=== PATIENT | male | born 1955 | race African-American/Black ===

== ENCOUNTER 2020-04-26 17:59 | Inpatient (IN) | payer OTHER ==
[~2020-04-26] VITALS: Ht 175.3 cm; Wt 89.0 kg
[~2020-04-26 17:59] MED LIST: CARDURA; HYDROCHLOROT25 MG PO; NORVASC2.5 MG PO; PROTONIX40 M2 PO; ZANTAC150 M1 PO
--- NOTE | 2020-04-26 17:59 | NUR ---
PT TO ROOM VIA EMS STRETCHER. PER EMS PT WAS GIVEN 324 MG OF ASA AND 0.4 MG OF NITRO, SL.
--- NOTE | 2020-04-26 18:50 | NUR ---
GAVE REPORT TO AARTI
[2020-04-26 18:53] LABS: BASO% 0 % (0-3); EOS% 0 % (0-8); HEMATOCRIT 34.9 % (39.0-50.0); IMMATURE GRANULOCYTES 0.9 % (0.0-5.0); LYMPH% 12 % (15-41); MEAN CELL VOLUME 84.7 fL CALC (80.0-100.0); MEAN CORPUSCULAR HGB 27.7 pG CALC (26.0-32.0); MEAN CORPUSCULAR HGB CONC 32.7 g/dL CAL (32.0-36.0); MONO% 5 % (2-13); NEUT% 82 % (42-76); RED BLOOD COUNT 4.12 mill/uL (4.70-6.10)
[2020-04-26 19:10] LABS: ALKALINE PHOSPHATASE 53 u/l (38-126); BILIRUBIN, TOTAL 0.7 mg/dL (0.0-1.4); BUN 30 mg/dL (8-23); BUN/CREATININE RATIO 27 (12-20 (CALC)); CHLORIDE 105 mmol/l (95-108); CREATININE 1.1 mg/dL (0.7-1.3); GFR > 60 ML/MIN (>=60 (CALC)); GFR FOR AFR.AMER. > 60 ML/MIN (>=60 (CALC)); POTASSIUM 3.3 mmol/l (3.5-5.1); SODIUM 137 mmol/l (137-146); TOTAL PROTEIN 7.4 g/dL (6.3-8.2)
[2020-04-26 19:12] LABS: D-DIMER 0.81 mg/L (0.19-0.60)
--- NOTE | 2020-04-26 19:15 | NUR ---
RESTING COMFORTABLY AWAITING DISPO.
[2020-04-26 19:21] LABS: ALBUMIN 3.5 g/dL (3.2-5.0); ANION GAP 9 (6-22 (CALC)); C-REACTIVE PROTEIN 14.8 mg/dL (0-0.9); CARBON DIOXIDE 26 mmol/l (22-30); SGOT/AST 62 u/l (19-48)
[2020-04-26 19:23] LABS: ACT PARTIAL THROMBO TIME 29.9 SECONDS (20.0-32.5); INTERNATIONAL NORMALIZED RATIO 1.1 RATIO (0.7-1.3); PROTHROMBIN TIME 10.8 SECONDS (9.0-12.5)
[2020-04-26 19:26] LABS: HEMOGLOBIN 11.4 g/dl (14.0-18.0); PLATELET COUNT 249 thou/uL (130-400)
--- NOTE | 2020-04-26 20:15 | NUR ---
NO CHANGE IN EXAM.
--- NOTE | 2020-04-26 20:59 | NUR ---
Admission Note Report Given to: TAWANNA CHAVEZ Transported by: Wheelchair X Stretcher Transported with: X Nurse Transporter X Patent IV O2 X Play Therapist Location: ICU X [facility]
--- NOTE | 2020-04-26 21:05 | NUR ---
BY STRETCHER TO ROOM WITH PATTI X 2 ATTENDING [address]ACKLES IN PLACE.
[2020-04-26 21:10] VITALS: BP 134/77
--- NOTE | 2020-04-26 21:10 | NUR ---
PT ARRIVED TO [facility] VIA STRETCHER ACCOMPANIED BY ER NURSE AND 2 GUARDS. PT ALERT AND ORIENTED X3, AMBULATED WITH STEADY GAIT TO BED, ORIENTED PT TO ROOM AND CALL LIGHT, TEDS APPLIED, R ANKLE SHACKLED TO BEDRAIL, IS AT BEDSIDE PT DEMONSTRATED IT'S USE PT UNABLE TO MOVE THE DEVICE. DISCUSSED POC, PT MEDICATED WITH DECADRON. PT ON RA AT THIS TIME. ADMISSION ASSESSMENT COMPLETED. CALL LIGHT IN REACH,CONTINUE TO MONITOR.
--- NOTE | 2020-04-26 22:06 | NUR ---
PT RESTING IN BED, DISCUSSED MD ORDERS OF LOVENOX, PT AGREES. PT TOLERATED WELL. CALL LIGHT IN REACH,CONTINUE TO MONITOR.
[2020-04-27 00:04] VITALS: BP 129/81
--- NOTE | 2020-04-27 00:13 | NUR ---
PT RESTING IN BED WITH EYES CLOSED, NO SIGNS OF DISTRESS NOTED, RESP EVEN AND UNLABORED. OFFICERS X2 AT BEDSIDE, CALL LIGHT IN REACH,CONTINUE TO MONITOR.
[2020-04-27 03:32] VITALS: BP 140/84
--- NOTE | 2020-04-27 06:10 | NUR ---
PT RESTING IN BED WITH EYES CLOSED, NO SIGNS OF DISTRESS NOTED, RESP EVEN AND UNLABORED. CALL LIGHT IN REACH,CONTINUE TO MONITOR.
[2020-04-27] MEDS ORDERED: CARDURA2 MG PO (07:33)
--- NOTE | 2020-04-27 08:14 | NUR ---
PT note Patient is screened for PT intervention and it is felt he has no needs at this time
[2020-04-27 08:50] VITALS: BP 140/76
--- NOTE | 2020-04-27 08:50 | NUR ---
ASSESSMENT IS COMPLETED: IV SITE IS FREE FROM REDNESS OR EDEMA. HR IS REG,PULSES ARE STRONG X4, ABD IS SOFT WITH ACTIVE BS. BREATH SOUNDS ARE CLEAR,AND DIMINISHED. BILATERALLY. TELE MONITOR IN PLACE. CONTINUE TO OSBERVE AND MONITOR. 1 GUARD IN THE ROOM WITH N95 THE OTHER GUARD OUTSIDE OF THE ROOM WITH A REGULAR MASK IN PLACE.,
[2020-04-27 11:00] VITALS: BP 122/78
--- NOTE | 2020-04-27 12:15 | NUR ---
SPOKE WITH NURSE P AT THE FACILITY. INQUIRED ABOUT PT.,EXPLAINED BEING OBSERVED OVER NIGHT. NO C/O CP. HAS A UTI. VERBALIZED UNDERSTANDING. IV SITE REMAINS FREE FROM REDNESS OR EDEMA.
[2020-04-27 16:15] VITALS: BP 121/76
--- NOTE | 2020-04-27 16:30 | NUR ---
PT IS RELAXING IN BED GUARDS PRESENT. IV SITE IS FREE FROM REDNESS OR EDEMA. CONITNUE TO OBSERVE AND MONITOR.
--- NOTE | 2020-04-27 20:00 | NUR ---
ASSESSMENT COMPLETED. GUARDS X2 AT BEDSIDE; GUARDS ARE EDUCATED ON NEED FOR N95 MASKS THEY ONLY HAVE SURGICAL FACE MASKS ON AND NEEDS FOR HAND HYGEINE WHILE IN ISOLATION ROOM.PT. IS A/A/O WITH NO DISTRESS NOTED ON RA. TELEMETRY IN PLACE. PT WITH SHACKLE ON RLE AND RELEASED SO PT. COULD AMBULATE UP TO THE TOP OF THE BED FOR BETTER POSITIONING IN BED. SCHED MED GIVEN. NEW IV SITE PLACED TO RIGHT HAND AND EMS SITE REMOVED WITH CATHETER TIP INTACT. EDUCATED ON POC. CALL LIGHT IS IN REACH.
[2020-04-27 20:10] VITALS: BP 144/74
--- NOTE | 2020-04-27 21:45 | NUR ---
GUARD UP AT THE DESK AND REQUESTING TO WARM UP HER FOOD; GUARD IS EDUCATED THIS WAS IN ISOLATION ROOM WE ARE NOT TO ALLOW IT IN BREAKROOM. GUARD APPEARS UPSET EVEN WITH EDUCATION GIVEN ON ISOLATION PROCEDURES. SPOKE WITH STUDENT RECRUITER AND NOTIFIED HER OF THIS. OFFERED TO HAVE STUDENT RECRUITER TO SPEAK WITH HER AND OTHER GUARDS IN REGARDS TO POLICIES AND GUARD DECLINES WANTING TO SPEAK WITH STUDENT RECRUITER.
[2020-04-28 00:20] VITALS: BP 131/70
--- NOTE | 2020-04-28 00:20 | NUR ---
PREP ROOM SUPERVISOR IN AT BEDSIDE OBTAINING VS;VSS. CALL LIGHT IS IN REACH. GUARDS IN AT BEDSIDE.
--- NOTE | 2020-04-28 02:16 | NUR ---
PT. RESTING IN BED WITH EYES CLOSED; AWAKENED FOR ROUNDS; DENIES NEEDS/PAIN. GUARDS X2 AT BEDSIDE.
[2020-04-28 04:13] VITALS: BP 142/76
--- NOTE | 2020-04-28 04:13 | NUR ---
AM VS OBTAINED; VSS; NO DISTRESS NOTED; DENIES NEEDING TO URINATE AT THIS TIME. SNACK PROVIDED. GUARDS REMAIN AT BEDSIDE AND DENY NEEDS. CALL LIGHT IS IN REACH. WILL CONTINUE TO MONITOR.
[2020-04-28 05:56] LABS: ALBUMIN 2.9 g/dL (3.2-5.0); ALKALINE PHOSPHATASE 47 u/l (38-126); ANION GAP 8 (6-22 (CALC)); BILIRUBIN, TOTAL 0.5 mg/dL (0.0-1.4); BUN 27 mg/dL (8-23); BUN/CREATININE RATIO 27 (12-20 (CALC)); C-REACTIVE PROTEIN 5.2 mg/dL (0-0.9); CARBON DIOXIDE 26 mmol/l (22-30); CHLORIDE 107 mmol/l (95-108); GFR > 60 ML/MIN (>=60 (CALC)); GFR FOR AFR.AMER. > 60 ML/MIN (>=60 (CALC)); POTASSIUM 3.9 mmol/l (3.5-5.1); SGOT/AST 37 u/l (19-48); SODIUM 137 mmol/l (137-146); TOTAL PROTEIN 6.3 g/dL (6.3-8.2)
[2020-04-28 06:07] LABS: HEMATOCRIT 35.4 % (39.0-50.0); HEMOGLOBIN 11.6 g/dl (14.0-18.0); IMMATURE GRANULOCYTES 0.8 % (0.0-5.0); MEAN CELL VOLUME 85.1 fL CALC (80.0-100.0); MEAN CORPUSCULAR HGB 27.9 pG CALC (26.0-32.0); MEAN CORPUSCULAR HGB CONC 32.8 g/dL CAL (32.0-36.0); NEUT# 5.83 thou/uL (1.82-7.42); RED BLOOD COUNT 4.16 mill/uL (4.70-6.10); RED CELL DISTRI WIDTH 12.1 % (11.5-15.5)
[2020-04-28 07:59] VITALS: BP 145/80
--- NOTE | 2020-04-28 07:59 | NUR ---
PT RESTING IN BED, NO SIGNS OF DISTRESS NOTED, RESP EVEN AND UNLABORED. PT VOICES NO NEEDS OR COMPLAINTS AT THIS TIME, DISCUSSED POC, GUARDS X2 AT BEDSIDE, R ANKLE SHACKLED TO BEDRAIL, TEDS IN PLACE, ASSESSMENT COMPLETED, CALL LIGHT IN REACH,CONTINUE TO MONITOR.
[2020-04-28 11:30] VITALS: BP 119/69
[2020-04-28] MEDS ORDERED: ZITHROMAX250 MG PO (12:24)
--- NOTE | 2020-04-28 12:27 | NUR ---
PT AMBULATING IN ROOM, GUARDS INQUIRING WHEN PT WILL BE DISCHARGED, INFORMED POSSIBLY WITHIN THE HR, AWAITING DISCHARGE ORDERS. VERBALIZED UNDERSTANDING. CALL LIGHT IN REACH,CONTINUE TO MONITOR.
[2020-04-28] MEDS ORDERED: DEXAMETHASON2 MG PO (12:47)
--- NOTE | 2020-04-28 13:08 | NUR ---
DISCUSSED DISCHARGE INSTRUCTIONS WITH PT, IV SITE REMOVED, CATHETER INTACT. GUARDS X2 AT BEDSIDE, AWAITING TRANSPORT.
--- NOTE | 2020-04-28 13:21 | NUR ---
Discharge instructions given. Patient verbalizes understanding of same. [facility] All belongings sent with pt.
--- NOTE | 2020-05-02 09:47 | NUR ---
After multiple attempts over 2 days: Positive Covid results called to [facility] [phone]. Spoke with Alesha in "medical". She requested results to be faxed to [phone]. Alesha was unable to give any information on patients condition, she states, "I don't work in that department." Alesha states she will forward results to the staff in the patients department.
== END 2020-04-28 13:21 | DRG 177 ==
LOC: ED 17:59 → ED-I 20:05 → ED 20:18 → MS2 20:19
PROVIDERS: Nurse Practitioner; Student in an Organized Health Care Education/Training Program; ADMIT Internal Medicine; ATTEND Internal Medicine
DX: U07.1 COVID-19 (principal); J12.89 Other viral pneumonia; I10 Essential (primary) hypertension; K21.9 Gastro-esophageal reflux disease without esophagitis; Z87.891 Personal history of nicotine dependence
CPT/HCPCS: J1650

== ENCOUNTER 2022-09-12 15:02 | Inpatient (IN) | payer OTHER ==
[2022-09-12] VITALS (20 sets, daily range): BP systolic 111–140; BP diastolic 52–79
[~2022-09-12] VITALS: Ht 175.3 cm; Wt 98.0 kg
[~2022-09-12 15:02] MED LIST changes: +CARDURA2 MG PO; +DEXAMETHASON2 MG PO; +ZITHROMAX250 MG PO
[2022-09-12] MEDS ORDERED: DOCUSATE SOD100 MG PO (15:42)
[2022-09-12 15:55] LABS: HEMATOCRIT 32.9 % (39.0-50.0); HEMOGLOBIN 11.2 g/dl (14.0-18.0); IMMATURE GRANULOCYTES 0.8 % (0.0-5.0); MEAN CELL VOLUME 83.9 fL CALC (80.0-100.0); MEAN CORPUSCULAR HGB 28.6 pG CALC (26.0-32.0); NEUT# 13.06 thou/uL (1.82-7.42); RED BLOOD COUNT 3.92 mill/uL (4.70-6.10); RED CELL DISTRI WIDTH 12.8 % (11.5-15.5)
[2022-09-12 16:13] LABS: INTERNATIONAL NORMALIZED RATIO 1.2 RATIO (0.7-1.3); PROTHROMBIN TIME 12.2 SECONDS (9.0-12.5)
[2022-09-12 16:15] LABS: BILIRUBIN, TOTAL 0.6 mg/dL (0.0-1.4); POTASSIUM 3.6 mmol/l (3.5-5.1)
[2022-09-12 16:16] LABS: ALBUMIN 3.8 g/dL (3.2-5.0); CREATININE 7.2 mg/dL (0.7-1.3); TOTAL PROTEIN 8.1 g/dL (6.3-8.2)
[2022-09-12 18:48] LABS: URINE BILIRUBIN - DIPSTICK NEGATIVE (NEGATIVE); URINE BLOOD DIPSTICK MODERATE (NEGATIVE); URINE COLOR YELLOW; URINE GLUCOSE - DIPSTICK NEGATIVE (NEGATIVE); URINE KETONE NEGATIVE (NEGATIVE); URINE PROTEIN - DIPSTICK TRACE mg/dL (NEG-TRACE); URINE UROBILINOGEN - DIPSTICK 0.2 E.U./dL (0.2)
[2022-09-12 18:53] LABS: URINE LEUK ESTERASE MODERATE (NEGATIVE); URINE NITRITE - DIPSTICK NEGATIVE (Negative)
[2022-09-12 18:57] LABS: URINE WBC 20-50 WBC/hpf (0-5)
[2022-09-12 18:58] LABS: URINE BACTERIA MANY hpf
[2022-09-13] VITALS (12 sets, daily range): BP systolic 86–159; BP diastolic 44–89
[2022-09-13 05:33] LABS: HEMATOCRIT 34.3 % (39.0-50.0); HEMOGLOBIN 11.8 g/dl (14.0-18.0); IMMATURE GRANULOCYTES 0.8 % (0.0-5.0); MEAN CELL VOLUME 84.3 fL CALC (80.0-100.0); MEAN CORPUSCULAR HGB CONC 34.4 g/dL CAL (32.0-36.0); NEUT# 9.05 thou/uL (1.82-7.42); RED BLOOD COUNT 4.07 mill/uL (4.70-6.10); RED CELL DISTRI WIDTH 12.8 % (11.5-15.5)
[2022-09-13 05:45] LABS: POTASSIUM 3.8 mmol/l (3.5-5.1)
[2022-09-13 06:09] LABS: CREATININE 4.1 mg/dL (0.7-1.3)
[2022-09-14] VITALS (7 sets, daily range): BP systolic 114–133; BP diastolic 65–79
[2022-09-14 05:38] LABS: HEMATOCRIT 33.3 % (39.0-50.0); IMMATURE GRANULOCYTES 0.9 % (0.0-5.0); MEAN CELL VOLUME 86.3 fL CALC (80.0-100.0); MEAN CORPUSCULAR HGB 28.5 pG CALC (26.0-32.0); NEUT# 9.26 thou/uL (1.82-7.42); RED BLOOD COUNT 3.86 mill/uL (4.70-6.10); RED CELL DISTRI WIDTH 12.9 % (11.5-15.5)
[2022-09-14 06:17] LABS: ALBUMIN 3.1 g/dL (3.2-5.0); MAGNESIUM 2.6 mg/dL (1.6-2.3); POTASSIUM 3.7 mmol/l (3.5-5.1); TOTAL PROTEIN 6.7 g/dL (6.3-8.2)
[2022-09-14 06:23] LABS: BILIRUBIN, TOTAL 0.3 mg/dL (0.0-1.4); CREATININE 1.9 mg/dL (0.7-1.3)
[2022-09-15 00:05] VITALS: BP 135/70
[2022-09-15 04:33] VITALS: BP 142/76
[2022-09-15 05:39] LABS: ALBUMIN 2.8 g/dL (3.2-5.0); BUN 34 mg/dL (8-23); CARBON DIOXIDE 29 mmol/l (22-30); CHLORIDE 112 mmol/l (95-108); CREATININE 1.2 mg/dL (0.7-1.3); GFR FOR AFR.AMER. > 60 ML/MIN (>=60 (CALC)); GFR OTHER RACES 60 ML/MIN (>=60 (CALC)); POTASSIUM 3.4 mmol/l (3.5-5.1); SODIUM 148 mmol/l (137-146)
[2022-09-15 06:53] VITALS: BP 122/70
[2022-09-15 08:20] VITALS: BP 122/70
[2022-09-15] MEDS ORDERED: TAMSULOSIN HCL0.4 MG PO (10:38)
[2022-09-15] MEDS ORDERED: CIPROFLOXACN500 MG PO (10:40)
== END 2022-09-15 15:00 | DRG 683 ==
LOC: ED 15:02 → ED-I 19:00 → ED 19:12 → MS2 19:13
PROVIDERS: Emergency Medicine; Internal Medicine Nephrology; ADMIT Internal Medicine; ATTEND Internal Medicine
PROC: 0T9B70Z Drainage of Bladder with Drainage Device, Via Natural or Artificial Opening (ICD-10-PCS; principal; 2022-09-12)
DX: N17.0 Acute kidney failure with tubular necrosis (principal); E87.1 Hypo-osmolality and hyponatremia; N13.8 Other obstructive and reflux uropathy; N39.0 Urinary tract infection, site not specified; N40.1 Benign prostatic hyperplasia with lower urinary tract symptoms; N13.39 Other hydronephrosis; R55 Syncope and collapse; I10 Essential (primary) hypertension; K21.9 Gastro-esophageal reflux disease without esophagitis; B96.20 Unspecified Escherichia coli [E. coli] as the cause of diseases classified elsewhere; Z86.16 Personal history of COVID-19; Z87.891 Personal history of nicotine dependence; Z87.01 Personal history of pneumonia (recurrent)
CPT/HCPCS: S0164